=== PATIENT | female | born 1945 | race Caucasian/White ===

== ENCOUNTER → 2019-12-14 10:14 | Outpatient (BNVA) | payer MEDICARE, OTHER, SELFPAY | PROVIDERS: Family Provider Nurse Practitioner Family; PCP Nurse Practitioner Family; Visit Provider Nurse Practitioner Family | DX: K59.00 Constipation, unspecified (principal) | CPT/HCPCS: 74018 ==

== ENCOUNTER 2020-09-28 10:25 | Outpatient (CLI) | payer MEDICARE, OTHER, SELFPAY ==
--- NOTE | 2020-09-28 10:45 | XR_ITS ---
WS: [id number] [facility], 09/28/2020 Clinical Data: DISPLACEMENT OF INTRAPERITONEAL CATHETER Comparison: [facility], 12/14/2019. Findings: There is a peritoneal dialysis catheter curled within the pelvis. There are surgical terrence probably outlining the cecum and the ascending colon. There are clips in the right upper quadrant from a chol ecystectomy. There is a large amount of fecal material in the colon. XR/XR abdomen 1V* [id number] Impression: Peritoneal dialysis catheter is curled in the pelvis.
--- NOTE | 2020-09-28 10:46 | XR_ITS ---
WS: [id number] Pelvis, AP view Clinical Data: DISPLACEMENT OF INTRAPERITONEAL CATHETER Comparison: None. Findings: The peritoneal dialysis catheter is curled within the pelvis. There are surgical terrence outlining th e cecum and ascending colon. XR/XR pelvis 1-2V* [id number] Impression: Peritoneal dialysis catheter curled in the pelvis.
== END 2020-09-28 10:26 | disposition home or self-care (01) ==
LOC: RAD 10:36
PROVIDERS: PCP Nurse Practitioner Family; Visit Provider Internal Medicine Nephrology
DX: T85.621A Displacement of intraperitoneal dialysis catheter, initial encounter (principal); X58.XXXA Exposure to other specified factors, initial encounter
CPT/HCPCS: 72170; 74018

== ENCOUNTER → 2020-10-05 13:27 | Outpatient (BNVA) | payer MEDICARE, OTHER, SELFPAY | PROVIDERS: PCP Nurse Practitioner Family; Visit Provider Nurse Practitioner Family | DX: R53.1 Weakness (principal); R82.90 Unspecified abnormal findings in urine | CPT/HCPCS: 81000; 87086 ==